=== PATIENT | male | born 1965 | race Caucasian/White ===

== ENCOUNTER 2016-09-08 20:38 | Emergency (ER) | payer OTHER ==
--- NOTE | ~2016-09-08 | ER ---
PATIENT'S NAME: ILANA CRAIG [facility] AGE: 51 Y [address] ROOM: [place] [address] LOCATION: ED ADMIT DATE: 09/08/2016 ER/Outpatient Report DISCHARGE DATE: 09/08/2016 FAMILY PHYSICIAN: Kb Ochoa MD ATTENDING PHYSICIAN: Gokul Lacy Time of Admission: 2037 hours. Time of Evaluation: 2039 hours. CHIEF COMPLAINT: Shortness of breath, cough x3 days. HISTORY OF PRESENT ILLNESS: Ilana is a 51-year-old male presents with his to the emergency room with an onset of illness in the last 3 days that is significantly worsened in the last 12-[address] Ochoa yesterday, was placed on a Z-Amaury. It was felt that there was maybe some type of viral illness. He has taken a second dose as of today. The last 48 hours, he has been running fevers around 100-101, also body aches along with chills. At times, he does feel somewhat dizzy, but has been drinking water pretty good he reports. He has also had some nausea, pain on inspiration and then feeling very tired. His reports 2-3 weeks ago, he was on Augmentin for a sinus infection and this was not very helpful and then turned to another Z-Amaury. The patient has no prior history of pneumonia, he did not receive influenza vaccine this season. PAST MEDICAL HISTORY: 1. Postsurgical hernia. 2. Postsurgical tonsillectomy. ALLERGIES: 1. MORPHINE. 2. SYMBICORT. CURRENT MEDICATIONS: Z-Amaury, take as directed, started on 09/07/2016. 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 He is a nonsmoker. Denies alcohol use. FAMILY HISTORY: Not obtained. REVIEW OF SYSTEMS: PATIENT'S NAME: ILANA CRAIG [facility] AGE: 51 Y [address] ROOM: [place] [address] LOCATION: ED ADMIT DATE: 09/08/2016 ER/Outpatient Report DISCHARGE DATE: 09/08/2016 FAMILY PHYSICIAN: Kb Ochoa MD ATTENDING PHYSICIAN: Gokul Lacy All systems reviewed by myself and negative with the exception of those noted in the HPI. PHYSICAL EXAMINATION: VITAL SIGNS: Height 6 feet 2 inches, weight 103.6 kg, temperature 100.7, pulse 90, respirations 20, blood pressure 147/82. He is 93% on room air. GENERAL: Ilana is alert, cooperative, but not feeling very well. SKIN: Overall is within normal limits. There are no rashes or diaphoresis noted. EYES: Conjunctivae bilaterally injected. There was no mattery discharge noted. EARS: Right ear is mildly red. Mild cerumen noted. NARES: Some congestion is present. He does complain of pressure to his maxillary and frontal sinuses. THROAT: A little bit of postnasal drainage present and pretty erythremic throughout. No overt swelling is noted. Tongue is midline. NECK: Supple, mild submandibular lymphadenopathy present. CHEST AND LUNGS: Lung sounds are pretty clear throughout, he does have a little shallow respirations, but he is having some bronchospasms and coughing spells here in the ER. HEART: Regular rate and rhythm without murmur. ABDOMEN: Soft and nontender. Reports it is a little upset. He denies any diarrhea, does have some dry heaves in the ER. LOWER EXTREMITIES: No peripheral edema is noted. NEUROLOGIC: Cranial nerves grossly intact. LABORATORY DATA: Strep and influenza are both negative. WBC 8.5, hemoglobin 14.1, platelets 204. Neutrophil and lymphocyte shift is pretty normal. Sodium 142, potassium 3.9, glucose just a little up at 120, BUN 7 and creatinine 1.0. No other lab abnormalities noted. IMAGING DATA: Chest x-ray was performed. This was reviewed with Dr. Lacy. There is no acute process noted. Official read is pending. ASSESSMENT: 1. Viral bronchitis. 2. Nausea. 3. Acute otitis media, right ear. PLAN: I did consult with Dr. Lacy. We will have him continue to finish out his Z- Amaury and also we started him on some prednisone to see if this will help with the inflammation particularly with the excessive coughing and sinus pressure. PATIENT'S NAME: ILANA CRAIG [facility] AGE: 51 Y [address] ROOM: [place] [address] LOCATION: ED ADMIT DATE: 09/08/2016 ER/Outpatient Report DISCHARGE DATE: 09/08/2016 FAMILY PHYSICIAN: Kb Ochoa MD ATTENDING PHYSICIAN: Gokul Lacy The patient will take 40 mg daily x1 day, 30 mg daily for 2 days, 20 mg daily for 2 days and 10 mg daily for 2 days. Also a script for Zofran 4 mg ODT 1 p.o. every 6 hours p.r.n. nausea and vomiting #15 with no refill is prescribed, he does have cough medicine, Phenergan with codeine at home. I do believe he is just running a pretty significant viral illness and likely will feel pretty under the weather the next couple days. He is going to switch to ibuprofen 800 mg in addition to alternating with Tylenol. He needs to push fluids and he needs to follow up with Dr. Ochoa, on Sunday if he is not doing any better. The patient and verbalized understanding. He did receive Tylenol during his ER stay, but temp upon dismissal was 101.5. BRIAN DIAZ APRN FOR MD YVONNE CHAVEZ/modl /[id number] d: 09/09/16 0148 t: 09/20/16 1155, OUTPATIENT REPORT
[2016-09-08 21:32] LABS: BASOPHIL # 0.1 K/uL (0.0-0.2); BASOPHIL % 0.7 %; EOSINOPHIL # 0.1 K/uL (0.0-0.5); EOSINOPHIL % 0.6 %; HEMATOCRIT 41.4 % (37.0-53.0); HEMOGLOBIN 14.1 g/dL (12.0-17.0); IMMATURE GRANULOCYTE % 0.4 %; LYMPHOCYTE # 1.5 K/uL (0.8-4.0); LYMPHOCYTE % 17.3 %; MCH 30.7 pg (27.0-34.0); MCHC 34.1 gm/dL (32.0-36.5); MCV 90.2 fl (83.0-98.0); MONOCYTE % 11.4 %; MPV 9.1 fl (9.4-12.4); NEUTROPHIL # (ANC) 5.9 K/uL (1.4-9.0); NEUTROPHIL % 69.6 %; NRBC % 0 /100WBC (0-0.00); PLATELET COUNT 204 K/uL (150-450); RBC 4.59 M/uL (4.00-6.00); RDW-CV 11.9 % (11.9-14.6); WBC 8.5 K/uL (4.0-11.0)
[2016-09-08 21:45] LABS: ALBUMIN 3.5 gm/dL (3.5-5.0); ALK PHOS 81 IU/L (33-138); ALT 24 IU/L (12-78); ANION GAP 12.9 (10.0-19.0); AST 23 IU/L (10-40); BLOOD UREA NITROGEN 7 mg/dL (6-24); CALCIUM 8.3 mg/dL (8.5-10.5); CHLORIDE 107 mMol/L (96-110); CO2 26 mMol/L (22-32); ESTIMATED GFR (MDRD EQUATION) > 60; POTASSIUM 3.9 mMol/L (3.7-5.1); SODIUM 142 mMol/L (135-145); TOTAL BILIRUBIN 0.4 mg/dL (0.0-1.5); TOTAL PROTEIN 6.9 g/dL (6.0-8.4)
== END 2016-09-08 22:27 | disposition disaster alternative care site (69) ==
LOC: GMED 20:38
PROVIDERS: Emergency Medicine
DX: J20.8 Acute bronchitis due to other specified organisms (principal); H66.91 Otitis media, unspecified, right ear; Z90.89 Acquired absence of other organs
CPT/HCPCS: J2405; J7030

== ENCOUNTER 2016-11-18 15:04 | Emergency (ER) | payer OTHER ==
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
== END 2016-11-18 16:18 | disposition disaster alternative care site (69) ==
LOC: GACC 15:04
DX: H53.8 Other visual disturbances (principal); Z77.098 Contact with and (suspected) exposure to other hazardous, chiefly nonmedicinal, chemicals; Z98.890 Other specified postprocedural states